=== PATIENT | male | born 1975 | race Two or more races ===

== ENCOUNTER 2018-03-31 19:27 | Outpatient (CLI) | payer OTHER | END 2018-03-31 20:14 | disposition home or self-care (01) | LOC: LAB 19:27 | DX: N30.00 Acute cystitis without hematuria (principal) ==

== ENCOUNTER 2023-10-14 08:58 | Emergency (ER) | payer OTHER ==
[~2023-10-14] VITALS: Ht 167.6 cm; Wt 77.1 kg
== END 2023-10-14 09:54 | disposition home or self-care (01) ==
LOC: ER 08:58
DX: S63.613A Unspecified sprain of left middle finger, initial encounter (principal); X58.XXXA Exposure to other specified factors, initial encounter; Y93.89 Activity, other specified; Y92.89 Other specified places as the place of occurrence of the external cause; Y99.9 Unspecified external cause status; Z91.013 Allergy to seafood

== ENCOUNTER → 2024-10-19 | Emergency (ER) | payer OTHER ==
[~2024-10-19] VITALS: Ht 180.3 cm; Wt 86.2 kg
[~2024-10-19] MED LIST: ABSORICA40 MG PO; AMOX-CLAV 875-1 EAC1 PO; KETO10TA2 PO; NASAL MIST126 ML; [UNRECOGNIZED DRUG - OTHER] PO
== END | disposition home or self-care (01) ==
LOC: ER 11:42
DX: R22.30 Localized swelling, mass and lump, unspecified upper limb (principal); Z91.013 Allergy to seafood